=== PATIENT | female | born 1980 | race Two or more races ===

== ENCOUNTER 2018-02-23 06:21 | Emergency (ER) | payer SELFPAY ==
[~2018-02-23] VITALS: Ht 170.2 cm; Wt 149.4 kg
[~2018-02-23 06:21] MED LIST: KEFLEX500 MG PO
[2018-02-23 07:05] LABS: HEMATOCRIT 38.1 % (36.0-46.0); HEMOGLOBIN 12.9 G/DL (11.9-15.5); MCH 30.2 PG (29.0-34.0); MCHC 33.9 G/DL (30.0-36.0); MCV 89.2 FL (83-99); PLATELET COUNT 272 K/uL (156-360); RBC DIS.WIDTH-CV 13.8 % (11.8-14.6); RBC DIS.WIDTH-SD 44.6 % (39-53); RED BLOOD COUNT 4.27 M/uL (3.80-5.20); WHITE BLOOD COUNT 7.7 K/uL (4.1-10.2)
[2018-02-23 07:39] LABS: APPEARANCE CLEAR ((CLEAR)); BILIRUBIN SMALL; BLOOD NEGATIVE; COLOR AMBER ((YELLOW)); GLUCOSE (STRIP) NEGATIVE; KETONES NEGATIVE; LEUKOCYTES NEGATIVE; NITRITE NEGATIVE; PROTEIN (STRIP) 30; SPECIFIC GRAVITY 1.038 (1.000-1.030); UCUL ADDED? NO
[2018-02-23 07:55] LABS: ALBUMIN 3.8 g/dL (3.2-4.8)
[2018-02-23 07:56] LABS: CHLORIDE 106 mEq/L (99-109); POTASSIUM 3.4 mEq/L (3.7-5.4); SODIUM 138 mEq/L (136-147)
[2018-02-23 07:58] LABS: GLUCOSE 161 mg/dL (70-99); TOTAL PROTEIN 7.5 g/dL (6.4-8.3)
[2018-02-23 08:00] LABS: TOTAL BILIRUBIN 0.3 mg/dL (0.0-1.0)
[2018-02-23 08:01] LABS: ALKALINE PHOSPHATASE 88 IU/L (3-129)
[2018-02-23 08:02] LABS: CREATININE 0.7 mg/dL (0.6-1.3); GFR ESTIMATE (CALCULATED) > 59 mL/min/
[2018-02-23 08:03] LABS: AST (GOT) 22 IU/L (2-34); UREA NITROGEN (BUN) 6 mg/dL (9-23)
[2018-02-23 08:04] LABS: ALT (GPT) 26 IU/L (3-49)
[2018-02-23 08:29] LABS: QUANTITATIVE HCG 7702.3 MIU/ML
[2018-02-23] MEDS ORDERED: ZOFRAN4 MG PO (09:06)
[2018-02-23 09:18] VITALS: BP 130/80
== END 2018-02-23 09:34 | disposition home or self-care (01) ==
LOC: EME 06:21
PROVIDERS: Nurse Practitioner Family
DX: O99.89 Other specified diseases and conditions complicating pregnancy, childbirth and the puerperium (principal); R19.7 Diarrhea, unspecified; R11.0 Nausea; R10.10 Upper abdominal pain, unspecified; O09.521 Supervision of elderly multigravida, first trimester; Z3A.01 Less than 8 weeks gestation of pregnancy; Z90.49 Acquired absence of other specified parts of digestive tract; Z87.891 Personal history of nicotine dependence
CPT/HCPCS: 80053; 81003; 83630; 84702; 85027; 87177; 87425-90; 87493; 87506; 99281; 99284